=== PATIENT | female | born 1980 | race Caucasian/White ===

== ENCOUNTER 2021-09-26 14:53 | Emergency (ER) | payer BC ==
[2021-09-26 19:41] LABS: CORONAVIRUS COVID-19 NAA POSITIVE (NEGATIVE)
== END 2021-09-26 20:23 | disposition home or self-care (01) ==
LOC: JD.ED 14:53
DX: U07.1 COVID-19 (principal); E03.9 Hypothyroidism, unspecified; Z79.899 Other long term (current) drug therapy; Z86.16 Personal history of COVID-19
CPT/HCPCS: 0240U; 36415; 80053; 81003; 84443; 85025; 86140; 99284

== ENCOUNTER 2021-12-16 11:11 | Emergency (ER) | payer BC ==
[2021-12-16] MEDS ORDERED: Sodium Chloride 0.9% 1,000 ML IV ONE (11:32)
[2021-12-16] MEDS ORDERED: Sodium Chloride 0.9% 10 ML Syringe FLUSH PRN (11:32)
[2021-12-16 12:50] LABS: ESTIMATED GFR 96 mL/min (>60)
== END 2021-12-16 14:24 | disposition home or self-care (01) ==
LOC: JD.ED 11:11
DX: R55 Syncope and collapse (principal); T50.905A Adverse effect of unspecified drugs, medicaments and biological substances, initial encounter; Z86.16 Personal history of COVID-19; Z79.899 Other long term (current) drug therapy
CPT/HCPCS: 36415; 80053; 83735; 84443; 84484; 85025; 93005; 96360; 99284; J3490; J7030; 93010

== ENCOUNTER 2022-05-29 06:50 | Emergency (ER) | payer BC | END 2022-05-29 09:00 | disposition left against medical advice (07) | LOC: JD.ED 06:50 | DX: Z53.21 Procedure and treatment not carried out due to patient leaving prior to being seen by health care provider (principal) ==

== ENCOUNTER 2024-01-01 03:14 | Emergency (ER) | payer BC ==
[2024-01-01 03:37] LABS: BASOPHILS ABSOLUTE AUTO 0.1 K/mm3 (0.0-0.2); BASOPHILS PERCENT AUTO 0.6 % (0.0-1.0); EOSINOPHILS ABSOLUTE AUTO 0.3 K/mm3 (0.0-0.4); EOSINOPHILS PERCENT AUTO 2.9 % (0.0-6.0); HEMATOCRIT 42.7 % (37.0-47.0); HEMOGLOBIN 14.2 gm/dl (12.0-16.0); IMMATURE GRAN ABSOLUTE AUTO 0.03 K/mm3 (0.00-0.05); IMMATURE GRAN PERCENT AUTO 0.3 % (0.0-0.4); LYMPHOCYTES ABSOLUTE AUTO 1.8 K/mm3 (1.0-4.8); LYMPHOCYTES PERCENT AUTO 18.8 % (24.0-44.0); MEAN CORPUSCULAR HEMOGLOBIN 28.2 pg (28.0-32.0); MEAN CORPUSCULAR HGB CONC 33.3 g/dl (32.0-36.0); MEAN CORPUSCULAR VOLUME 84.7 fl (83.0-99.0); MEAN PLATELET VOLUME 8.9 fl (9.4-12.3); MONOCYTES ABSOLUTE AUTO 0.6 K/mm3 (0.0-0.8); MONOCYTES PERCENT AUTO 6.3 % (0.0-8.0); NEUTROPHILS ABSOLUTE AUTO 6.7 K/mm3 (1.8-7.7); NEUTROPHILS PERCENT AUTO 71.1 % (41.0-71.0); PLATELET COUNT,PLT 432 K/mm3 (150-400); RED BLOOD CELL COUNT 5.04 M/mm3 (4.10-5.30); WHITE BLOOD CELL COUNT,WBC 9.41 K/mm3 (3.9-11.3)
[2024-01-01] MEDS: Ondansetron 4 MG/2 ML SDV IVPUSH ONE (03:50)
[2024-01-01] MEDS: Pantoprazole 40 MG Vial IVPUSH ONE (03:51)
[2024-01-01] MEDS: Sodium Chloride 0.9% 10 ML Syringe FLUSH PRN (03:51)
[2024-01-01 04:05] LABS: A/G RATIO 1.1 (1-2); ALBUMIN 3.8 g/dl (3.4-5.0); ANION GAP 12.8 (5-15); BILIRUBIN TOTAL 0.7 mg/dL (0.2-1.0); C-REACTIVE PROTEIN 0.09 mg/dL (<0.30); EST CRCL DRUG DOSING (CG) 78.31 mL/min; MAGNESIUM 1.9 mg/dL (1.8-2.4); POTASSIUM,K 3.8 mEq/L (3.5-5.1); PROTEIN TOTAL,TP 7.2 g/dl (6.4-8.2)
[2024-01-01] MEDS: Ketorolac 30 MG/ML SDV IVPUSH ONE (04:39)
[2024-01-01] MEDS: Iopamidol 612 MG/ML 100 ML Bottle IVPUSH ONE (04:58)
[2024-01-01 06:03] LABS: APPEARANCE,URINE CLEAR (Clear); BILIRUBIN,URINE NEGATIVE (Negative); COLOR,URINE YELLOW (Yellow); GLUCOSE,URINE NEGATIVE (Negative); KETONES,URINE NEGATIVE (Negative); LEUKOCYTE ESTERASE,URINE NEGATIVE (Negative); NITRITE,URINE NEGATIVE (Negative); OCCULT BLOOD,URINE NEGATIVE (Negative); PROTEIN,URINE NEGATIVE (Negative); UROBILINOGEN,URINE 0.2 (0.2-1.0)
[2024-01-01] MEDS ORDERED: Naloxone 0.4 MG/ML SDV IVPUSH PRN (06:13)
[2024-01-01] MEDS: HYDROmorphone 1 MG/ML Syringe IVPUSH ONE (06:27)
== END 2024-01-01 09:00 | disposition home or self-care (01) ==
LOC: JD.ED 03:14
DX: K80.20 Calculus of gallbladder without cholecystitis without obstruction (principal); K85.90 Acute pancreatitis without necrosis or infection, unspecified; E03.9 Hypothyroidism, unspecified; Z86.16 Personal history of COVID-19; Z79.899 Other long term (current) drug therapy; Z88.8 Allergy status to other drugs, medicaments and biological substances
CPT/HCPCS: 36415; 74177; 76705; 80053; 81003; 83690; 83735; 84484; 84703; 85025; 85379; 86140; 93005; 96374; 96375; 99285; J1170; J1885; J2405; J2470; J3490; Q9967; 93010; 99284

== ENCOUNTER 2024-01-08 10:43 | Day surgery (SDC) | payer BC ==
[~2024-01-08 10:43] MED LIST: Dexamethasone 4 MG/ML 5 ML MDV ONE; Ketorolac 30 MG/ML SDV ONE; Lactated Ringers 1,000 ML ONE; Lidocaine 1% 4 ML ONE; Lidocaine 1% 5 ML VIAL ONE; Midazolam 1 MG/ML 2 ML SDV ONE; Ondansetron 4 MG/2 ML SDV ONE; Propofol 200 MG/20 ML SDV ONE; Rocuronium 50 MG/5 ML Vial ONE; Sodium Chloride 0.9% 10 ML Syringe FLUSH PRN; Sodium Chloride 0.9% 10 ML Syringe FLUSH SCH; ceFAZolin 2 GM Vial ONE; dexmedeTOMIDine HCl 200 MCG/2 ML SDV ONE; fentaNYL 250 MCG/5 ML SDV ONE
[2024-01-08] MEDS ORDERED: ePHEDrine 50 MG/ML SDV ONE (10:56)
[2024-01-08] MEDS ORDERED: Metoprolol Tartrate 5 MG/5 ML SDV ONE (11:10)
[2024-01-08] MEDS ORDERED: HYDROmorphone 0.5 MG/0.5 ML Syringe IVPUSH PRN (11:18)
[2024-01-08] MEDS ORDERED: Ondansetron 4 MG/2 ML SDV IVPUSH PRN (11:18)
[2024-01-08] MEDS ORDERED: Neostigmine Methylsulfate 10 MG/10 ML MDV ONE (11:20)
[2024-01-08] MEDS ORDERED: Lactated Ringers 1,000 ML ONE (11:25)
[2024-01-08] MEDS: Scopalamine 1mg/3day Transdermal Patch TRDERM ONE (11:29)
[2024-01-08] MEDS: Acetaminophen 325 MG Tab PO SCH (11:29)
[2024-01-08] MEDS: Gabapentin 300 MG Cap PO SCH (11:30)
[2024-01-08] MEDS: Lactated Ringers 1,000 ML IV SCH (11:34)
[2024-01-08] MEDS: fentaNYL 100 MCG/2 ML SDV IVPUSH PRN (13:07)
[2024-01-08] MEDS: Lidocaine 1% 30 ML SDV ONE (13:37)
[2024-01-08] MEDS: Bupivacaine 0.5% 30 ML SDV ONE (13:37)
[2024-01-08] MEDS: EPINEPHrine 1 MG/ML SDV ONE (13:37)
== END 2024-01-08 15:58 | disposition home or self-care (01) ==
LOC: JD.SDS 10:43
PROVIDERS: ATTEND Surgery
DX: K80.10 Calculus of gallbladder with chronic cholecystitis without obstruction (principal); K85.10 Biliary acute pancreatitis without necrosis or infection; K82.8 Other specified diseases of gallbladder; F41.8 Other specified anxiety disorders; E03.9 Hypothyroidism, unspecified; Z79.899 Other long term (current) drug therapy; Z79.890 Hormone replacement therapy
CPT/HCPCS: 47562; A9270; J0171; J0665; J0690; J1100; J1885; J2250; J2405; J2704; J2710; J3010; J3490; J7120